=== PATIENT | male | born 1980 ===

== ENCOUNTER → 2023-05-15 10:52 | Outpatient (CLI) | payer BC, SELFPAY ==
--- NOTE | ~2023-05-15 | MR_ITS ---
MRI of the brain Clinical History: Hyperprolactinemia Technique: Axial and sagittal T1-weighted images were acquired. These were followed by axial T2-weigh corina, diffusion weighted, gradient, and FLAIR images. Thin cut sagittal and coronal T1-weighted images were acquired through the sella turcica. Following intravenous administration of 19 cc MultiHance ga dolinium, T1-weighted fat-sat imaging was performed through the brain in the axial and coronal planes . Thin cut T1-weighted postcontrast imaging was also performed through the sella turcica in the coron al and sagittal planes. Findings: There is no acute infarct, intracranial hemorrhage, or mass lesion. There are minimal chron ic white matter changes in the periventricular white matter. Ventricles and subarachnoid spaces are unremarkable. Orbits are unremarkable. Paranasal sinuses and m astoid air cells are unremarkable. Major intracranial flow voids appear intact. No sellar or suprasellar mass identified. No pituitary lesion seen. Optic chiasm unremarkable. No abn ormal postcontrast enhancement identified. Sagittal midline structures are intact. IMPRESSION: No significant abnormality seen. No pituitary lesion or sellar/suprasellar mass identified. Reviewed, dictated and finalized at location M.
== END ==
DX: E22.1 Hyperprolactinemia (principal)
CPT/HCPCS: 70553; A9577